=== PATIENT | male | born 1985 | race Two or more races ===

== ENCOUNTER 2018-11-04 11:53 | Emergency (ER) | payer BC, OTHER ==
[~2018-11-04] VITALS: Ht 172.7 cm; Wt 85.3 kg
--- NOTE | 2018-11-04 12:19 | NUR ---
PATIENT REPORTS TAKING "BROWN PILLS FOR EAR ACHE AND WOKE UP THIS MORNING AND COULDN'T BREATHE". HX OF ASTHMA, PATIENT NOT ON HOME O2, NOW 94% 2.5L NC. REPORTS RUNNING OUT OF INHALER 2 MONTHS AGO. MOTHER AT BEDSIDE, FLEX. RESP EVEN/UNLABORED. CALL LIGHT WITHIN REACH. AWAITING MD ORDERS. Addendum: 11/04/18 at 1225 by BANG NO RECENT TRAVEL/SURGERIES. DENIES BEING A SMOKER.
[2018-11-04] MEDS ORDERED: ALBUTEROL SULFATE 2.5 MG/3 ML NPPB SCH (13:00)
--- NOTE | 2018-11-04 13:19 | NUR ---
NEW ORDERS, MEDICATIONS ADMINISTERED PER MD ORDER. AWAITING RT FOR BREATHING TREATMENT. FLEX.
[2018-11-04] MEDS ORDERED: ALBUTEROL SULFATE 2.5 MG/3 ML ONE (13:20)
[2018-11-04] MEDS ORDERED: ALBUTEROL SULFATE 2.5MG/0.5ML ONE (13:20)
[2018-11-04 15:03] VITALS: BP 113/69
== END 2018-11-04 15:06 | disposition home or self-care (01) ==
LOC: ED 14:49
DX: J45.21 Mild intermittent asthma with (acute) exacerbation (principal)
CPT/HCPCS: 93005; 94640; 99283; J7512; J7613

== ENCOUNTER 2018-11-06 10:23 | Emergency (ER) | payer OTHER ==
[~2018-11-06] VITALS: Ht 172.7 cm; Wt 85.0 kg
[2018-11-06 10:26] VITALS: BP 116/83
[2018-11-06] MEDS ORDERED: CARBAMIDE PEROXIDE EAR DROPS 6.5%, 15ML RIGHT EAR ONE (11:00)
[2018-11-06] MEDS ORDERED: CARBAMIDE PEROXIDE EAR DROPS 6.5%, 15ML ONE (11:03)
--- NOTE | 2018-11-06 11:07 | NUR ---
DROPS PLACED RIGHT EAR AND TO BE IRRIGATED BY TECH
--- NOTE | 2018-11-06 11:22 | NUR ---
RIGHT EAR IRRIGATED WITH WARM WATER. SECRETIONS SEEN DURING IRRIGATION. PATIENT STATES THAT HIS EAR FEELS BETTER
[2018-11-06] MEDS ORDERED: DOCUSATE 50 MG/5 ML, 10ML UDC ONE (11:50)
[2018-11-06] MEDS ORDERED: DOCUSATE 50 MG/5 ML ORAL SOL OT ONE (12:00)
--- NOTE | 2018-11-06 12:02 | NUR ---
HYACINTH RE-EVAL OF RIGHT EAR AND NOTED THAT AFTER IRRIGATION PT STILL HAS WAX IN EAR. COLACE INTRODUCED PER ORDERS AND TO RE-IRRIGATE AFTER LETTING IT SET
--- NOTE | 2018-11-06 12:28 | NUR ---
IRRIGATED EAR WITH WARM WATER. NOT MUCH WAX NOTED. Addendum: 11/06/18 at 1230 by AMIRA NOT MUCH WAX NOTED TO COME OUT WITH IRRIGATION. RE-INTRODUCED ACE TO EAR.
--- NOTE | 2018-11-06 13:00 | NUR ---
PA AT BEDSIDE IRRIGATING EAR WITH EAR WAX PLUGS REMOVED.
== END 2018-11-06 13:07 | disposition home or self-care (01) ==
LOC: ED 11:59
DX: H61.21 Impacted cerumen, right ear (principal); H66.91 Otitis media, unspecified, right ear; H60.91 Unspecified otitis externa, right ear
CPT/HCPCS: 69210; 99284